=== PATIENT | female | born 1985 | race Caucasian/White ===

== ENCOUNTER 2019-02-28 17:48 | Outpatient (CLI) | payer MEDICAID ==
[~2019-02-28] VITALS: Ht 162.6 cm; Wt 87.8 kg
[~2019-02-28 17:48] MED LIST: PREN1TAB49 PO
[2019-02-28 17:56] VITALS: Ht 162.6 cm; Wt 87.8 kg
--- NOTE | 2019-02-28 18:51 | PN ---
Triage Information Date/Time Reason for visit: Weeks of Gestation 35.3 /Para 4/3 Assessment/Plan presents for polyhydramnios bpp 03/03 jah 26. repeat in one week MILESTONE,LATRICIA LUNSFORD Feb 28, 2019 18:51
--- NOTE | 2019-02-28 19:08 | TRIAGE ---
OB Triage Datetime Report Generated by CPN: 02/28/2019 19:08 Datetime: 02/28/2019 18:48 Maternal Assessment Level of Consciousness: Keenly Alert, Responsive DTR's/Clonus: DTRs 1+ Headache: Denies Blurred Vision: No Nausea/Vomiting: Denies RUQ Epigastric Pain: Denies Facial Edema: None Labor Evaluation Frequency: NONE Monitor Mode: External Resting Tone [place]: Relaxed Heart Rate FHR Baseline Rate: 135 Monitor Mode: External US Variability: Moderate 6-25 bpm Accelerations: 15X15 Decelerations: None Category: Category I Pain Assessment Pain Scale: 0 Pain Presence: None/Denies Pain Type: N/A Pain Goal: 3 Vaginal Exam Membrane Status: Intact Datetime: 02/28/2019 17:55 Assessment Type: Triage Maternal Assessment Level of Consciousness: Keenly Alert, Responsive DTR's/Clonus: DTRs 2+; No Clonus Headache: Denies Blurred Vision: No Respiratory Effort: Unlabored; Regular Rhythm; Equal Expansion Breath Sounds, Left: Clear and Equal Breath Sounds, Right: Clear and Equal Nausea/Vomiting: Denies RUQ Epigastric Pain: Denies Lower Extremities Edema: None Degree: None Upper Extremities Edema: None Degree: None Facial Edema: None Fall Risk Assessment History of Falling: (0) No Secondary Diagnosis: (0) No Ambulatory Aid: (0) Bedrest/Nurse Assist IV Therapy: (0) No Gait: (0) Normal/Bedrest/Immobile Mental Status: (0) Oriented to Own Ability Fall Score: 0 Fall Risk Score Definition: No Risk: No action required Datetime: 02/28/2019 17:41 Time of Arrival: 02/28/2019 17:41 EGA: 35.3 Arrived By: Ambulatory Arrived From: Office Chief Complaint: PT CAME IN FOR NST AND BPP FOR POLY U/S DONE SARWAT 26.4 Movement: Present Contractions: Denies/Absent Additional Patient Complaints: NONE Time Provider Notified: 02/28/2019 17:50 Provider Notified: MILESTONE Initial Plan: NST AND BPP
== END 2019-02-28 18:53 | disposition home or self-care (01) ==
LOC: OBT 17:48 → L-D 17:51 → OBT 18:53
PROVIDERS: ATTEND Obstetrics & Gynecology
DX: O40.3XX0 Polyhydramnios, third trimester, not applicable or unspecified (principal); Z3A.35 35 weeks gestation of pregnancy
CPT/HCPCS: 76818; Z7500; G0463